=== PATIENT | male | born 1985 | race Caucasian/White ===

== ENCOUNTER 2023-09-21 10:19 | Emergency (ER) | payer SELFPAY ==
--- NOTE | ~2023-09-21 | CT_ITS ---
EXAMINATION: CT HEAD WITHOUT CONTRAST CLINICAL INFORMATION: Facial weakness and numbness. COMPARISON: None available. TECHNIQUE: Contiguous axial imaging was performed from the skull base to vertex without intravenous administration of contrast. This CT examination was performed using dose optimization techniques as appropriate, variously including the following: *Automated exposure control *Adjustment of mA and/or kV according to patient size (this includes techniques or standardized protocols for targeted exams where dose is matched to indication/reason for exam; i.e. extremities or head) *Use of iterative reconstruction technique DLP: 842 mGy-cm FINDINGS: The lateral, third and fourth ventricles are normally outlined. The cortical sulci and basal cisterns are normally outlined as well. There is no acute territorial defect, hemorrhage or midline shift. The extra-axial spaces are unremarkable. Calvarium: Intact. Maxillofacial sinuses and mastoids: Clear as visualized. CT/CT head/brain wo IV con IMPRESSION: No acute intracranial pathology.
[2023-09-21 10:44] VITALS: BP 140/95; PULSE 93; RESP 20; TEMP 35.6; O2SAT 97; BMI 45.9
[2023-09-21 11:13] LABS: MANUAL DIFF FLAG NO
[2023-09-21 11:14] LABS: Basophils Absolute Auto 0.1 X10*3/uL (0.0-0.2); Basophils Percent Auto 0.5 % (0-2); Eosinophils Absolute Auto 0.2 X10*3/uL (0.0-0.4); Eosinophils Percent Auto 1.6 % (0-4); Hematocrit 49.7 % (42.0-52.0); Hemoglobin 16.8 g/dl (14.0-18.0); Imm Gran Abs Auto 0.05 X10*3/uL (0.00-0.03); Imm Gran Pct Auto 0.4 % (0.0-0.4); Lymphocytes Absolute Auto 3.3 X10*3/uL (1.2-4.9); Lymphocytes Percent Auto 23.2 % (20-40); Mean Corpuscular HGB Conc 33.8 g/dl (31.0-36.0); Mean Corpuscular Volume 85.7 fL (80.0-98.0); Mean Platelet Volume 10.7 fL (9.4-12.4); Monocytes Absolute Auto 0.9 X10*3/uL (0.1-1.2); Monocytes Percent Auto 6.4 % (2-11); Neutrophils Absolute Auto 9.5 x10*3/uL (2.0-8.3); Neutrophils Percent Auto 67.9 % (45-73); Platelet Count 346 X10*3/uL (160-400); Red Cell Distribution Width 12.3 % (11.0-16.0)
[2023-09-21 11:26] LABS: Anion Gap 12 (12-20); Blood Urea Nitrogen 19 mg/dL (9-16); Calcium 10.1 mg/dL (8.4-10.2); Carbon Dioxide 28 mmol/L (22-29); Chloride 105 mmol/L (96-108); Creatinine Clr Calc Pharmacy 178.2; Estimated Glomerular Filt Rate > 60; Glucose Random 103 mg/dL (60-115); Potassium 4.1 mmol/L (3.3-5.1); Sodium 141 mmol/L (135-145)
--- NOTE | 2023-09-21 17:18 | ED_ITS ---
HPI - Neuro Symptoms/Deficit General Chief Complaint: Neuro Symptoms/Deficit Stated Complaint: Numbness left side of face Time Seen by Provider: 09/21/23 17:08 Source: patient Mode of arrival: ambulatory Limitations: no limitations History of Present Illness HPI Narrative: 38 yo male with no known PMH no recent infections, travel, procedures, cold sores, tick bites notes over the weekend developed tingling in the tongue and lower mouth and has progressed paralysis and tingling of entire L side of face. At this time now has L sided facial numbness/weakness has never had bells palsy before. Onset (ago): day(s) (couple) Location: left face History of same: No Severity: moderate Quality: tingling Relieving factors: none Exacerbating factors: none Context: gradual onset On Anticoagulants: No Associated symptoms: denies other symptoms Treatments Prior to Arrival: none Related Data Previous Rx's Medication Instructions Recorded prednisone 20 mg tablet 60 mg (3 x 20 mg) PO DAILY 4 days 09/21/23 #12 tabs valacyclovir 1 gram tablet 1,000 mg PO TID #21 tabs 09/21/23 (Valtrex) Allergies Allergy/AdvReac Type Severity Reaction Status Date / Time No Known Allergies Allergy Verified 09/21/23 17:24 Review of Systems 2 Review of Systems: Constitutional : No Fever, No Chills, No Fatigue Cardiovascular : No Chest Pain, No SOB, No Dyspnea on Exertion Respiratory : No Cough, No Sputum Gastrointestinal : No Nausea, No Vomiting, No Diarrhea, No abdominal Pain Genitourinary : No Dysuria, No Urinary Frequency, No Hematuria, Musculoskeletal : No joint pain, No Myalgias, No Joint Swelling Skin : No Skin Lesions, No rash Neuro : pos Weakness, No Numbness, No Dizziness, positive Headache Psych : No Anxiety/Panic, No Depression All other systems reviewed and are negative PMFSH Past Medical History Source: old records reviewed Medical History No pertinent past medical history Social History Social History (Updated 09/21/23 @ 17:32 by Hetal Russo DO) Patient Tobacco Use Status: Never used Tobacco Smoked in Last 30 Days: No Advance Directives: No Advance Directives Information Provided: No Physical Exam 2 Vital Signs: Vital Signs: Last Vital Signs Temp 98.0 F 09/21/23 18:00 Pulse 93 09/21/23 18:00 Resp 18 09/21/23 18:00 BP 135/81 09/21/23 18:00 Pulse Ox 97 09/21/23 18:00 O2 Del Method Room Air 09/21/23 18:00 BMI result Body Mass Index 45.9 Appearance: Alert. Oriented X3. No acute distress. Eyes: Pupils equal, round and reactive to light. ENT: Pharynx normal. TMs normal Neck: Normal inspection. Neck supple. CVS: Normal heart rate and rhythm. Pulses normal. Respiratory: No respiratory distress. Breath sounds normal. Abdomen: Soft and nontender. Skin: Skin warm and dry. Normal skin color. Normal skin turgor. Extremities: No lower extremity edema. No calf ttp Neuro: Oriented X 3. No motor deficit. No sensory deficit. L sided facial palsy lower to upper can still move very small part of upper forehead has difficulty closing eye - has hypersensitivity to L face, no rash seen Medications Administered Discontinued Medications Generic Name Dose Route Start Last Admin Trade Name Freq PRN Reason Stop Dose Admin Prednisone 60 mg 09/21/23 17:25 09/21/23 18:11 Prednisone 20 Mg Tablet PO 09/21/23 17:26 60 mg ONCE ONE Administration Valacyclovir HCl 1,000 mg 09/21/23 17:24 09/21/23 18:11 Valacyclovir Hcl 1,000 Mg Tablet PO 09/21/23 17:25 1,000 mg ONCE ONE Administration Medical Decision Making Medical Decision Making [facility] Narrative: 38 yo male with no PMH here with c/o L sided tingling that progressed to facial palsy at this time will need basic labs, lyme test, CT head given some movement of upper forehead though I really do suspect bells palsy will start on prednisone and valacyclovir. Given precautions to return. Differential Diagnosis Differential Diagnoses: The differential diagnosis associated with the presentation includes bells palsy, mass, low susp for stroke Admission/Observation Consideration of admission/observation: Escalation of care including admission/observation considered will start on oral medications and DC home. Lab Data [facility] Lab Attestation statement: I reviewed the patient's lab results. 09/21/23 11:08 09/21/23 11:08 Labs: Lab Results 09/21/23 Range/Units 11:08 WBC 14.0 H (4.8-10.8) X10*3/uL RBC 5.80 (4.60-5.80) X10*6/uL Hgb 16.8 (14.0-18.0) g/dl Hct 49.7 (42.0-52.0) % MCV 85.7 (80.0-98.0) fL MCH 29.0 (27.0-33.0) pg MCHC 33.8 (31.0-36.0) g/dl RDW 12.3 (11.0-16.0) % Plt Count 346 (160-400) X10*3/uL MPV 10.7 (9.4-12.4) fL Immature Gran % (Auto) 0.4 (0.0-0.4) % Neut % (Auto) 67.9 (45-73) % Lymph % (Auto) 23.2 (20-40) % [place] % (Auto) 6.4 (2-11) % Eos % (Auto) 1.6 (0-4) % Baso % (Auto) 0.5 (0-2) % Lymph # (Auto) 3.3 (1.2-4.9) X10*3/uL [place] # (Auto) 0.9 (0.1-1.2) X10*3/uL Eos # (Auto) 0.2 (0.0-0.4) X10*3/uL Baso # (Auto) 0.1 (0.0-0.2) X10*3/uL Abs Immat Gran (auto) 0.05 H (0.00-0.03) X10*3/uL Absolute Neuts (auto) 9.5 H (2.0-8.3) x10*3/uL Absolute Nucleated RBC 0.000 (0.0-0.012) X10*3/uL Nucleated RBC % (auto) 0.0 (0.0-0.2) /100WBC Sodium 141 (135-145) mmol/L Potassium 4.1 (3.3-5.1) mmol/L Chloride 105 (96-108) mmol/L Carbon Dioxide 28 (22-29) mmol/L Anion Gap 12 (12-20) BUN 19 H (9-16) mg/dL Creatinine 0.85 (0.5-1.4) mg/dL Estim Creat Clear Calc 178.2 Estimated GFR > 60 Random Glucose 103 (60-115) mg/dL Calcium 10.1 (8.4-10.2) mg/dL Independent Interpretation I performed an independent interpretation of an: CT Scan (no ICH) Radiology Impression Discussion of test interpretation with radiology: I have reviewed the radiologist's reading. Prescription Management I considered prescription management with: Other Discharge Plan Discharge Clinical Impression: Martinez's palsy Patient Disposition: Home, Self-Care Instructions: Martinez Palsy (ED) Additional Instructions: keep eye lubricated with eye drops, you may need to gently tape eye shut at night to prevent abrasions to the eye ball. take medications with food. return for worsening symptoms or concerns. this can happen again in the future. we will call you if lyme study is positive. Prescriptions: New valacyclovir [Valtrex] 1 gram tablet 1,000 mg PO TID Qty: 21 0RF prednisone 20 mg tablet 60 mg PO DAILY 4 Days Qty: 12 0RF Stand Alone Forms: Work/School Release
[2023-09-21 17:44] VITALS: BP 127/86; PULSE 92; RESP 18; TEMP 36.9; O2SAT 96
[2023-09-21 18:00] VITALS: BP 135/81; PULSE 93; RESP 18; TEMP 36.7; O2SAT 97
[2023-09-21] MEDS: predniSONE 20 MG TABLET 60 MG PO (18:11)
[2023-09-21] MEDS: valACYclovir HCL 1,000 MG TABLET 1000 MG PO (18:11)
--- NOTE | 2023-09-21 18:47 | PC.NURSE ---
Pt is a&ox4 coming in with tongue numbness that started Wednesday. On Wednesday left sided face numbness and unable to close , pt denies all other nuero symptoms. skin pwd.
[2023-09-22 16:53] LABS: Lyme Abs Screen <0.90 index
== END 2023-09-21 19:35 | disposition home or self-care (01) ==
PROVIDERS: Emergency Provider Emergency Medicine
DX: G51.0 Bell's palsy (principal); R51.9 Headache, unspecified; R20.0 Anesthesia of skin; Z79.899 Other long term (current) drug therapy
CPT/HCPCS: 36415; 70450; 80048; 85025; 86617; 86618; 99284